=== PATIENT | female | born 1995 | race Two or more races ===

== ENCOUNTER 2022-05-28 15:58 | Outpatient (CLI) | payer OTHER | END 2022-05-28 17:12 | disposition home or self-care (01) | LOC: PRENATAL 15:58 | PROVIDERS: ATTEND Obstetrics & Gynecology Maternal & Fetal Medicine | DX: O35.0XX0 Maternal care for (suspected) central nervous system malformation in fetus, not applicable or unspecified (principal); O35.3XX0 Maternal care for (suspected) damage to fetus from viral disease in mother, not applicable or unspecified; O13.9 Gestational [pregnancy-induced] hypertension without significant proteinuria, unspecified trimester; Z3A.21 21 weeks gestation of pregnancy ==

== ENCOUNTER 2022-07-16 15:15 | Outpatient (CLI) | payer OTHER ==
[~2022-07-16 15:15] MED LIST: ADALAT CC60 MG PO
[2022-07-17] MEDS ORDERED: ADALAT CC60 MG PO (16:58)
[2022-07-31] MEDS ORDERED: LEVOTHYROXINE25 MCG PO (08:45)
== END 2022-07-16 16:52 | disposition home or self-care (01) ==
LOC: PRENATAL 15:15
PROVIDERS: ATTEND Obstetrics & Gynecology Maternal & Fetal Medicine
DX: O26.849 Uterine size-date discrepancy, unspecified trimester (principal); O13.9 Gestational [pregnancy-induced] hypertension without significant proteinuria, unspecified trimester; Z3A.28 28 weeks gestation of pregnancy

== ENCOUNTER 2022-08-20 15:21 | Outpatient (CLI) | payer OTHER ==
[~2022-08-20 15:21] MED LIST changes: +LEVOTHYROXINE25 MCG PO
[2022-08-23] MEDS ORDERED: PROCARDIA XL90 MG PO ×2 (09:44→09:45)
== END 2022-08-20 16:23 | disposition home or self-care (01) ==
LOC: PRENATAL 15:21
PROVIDERS: ATTEND Obstetrics & Gynecology Maternal & Fetal Medicine
DX: O26.849 Uterine size-date discrepancy, unspecified trimester (principal); O13.9 Gestational [pregnancy-induced] hypertension without significant proteinuria, unspecified trimester; Z3A.33 33 weeks gestation of pregnancy

== ENCOUNTER 2024-01-12 09:08 | Emergency (ER) | payer OTHER ==
[~2024-01-12] VITALS: Ht 160 cm; Wt 85.7 kg
[~2024-01-12 09:08] MED LIST changes: +PROCARDIA XL90 MG PO
[2024-01-12] MEDS ORDERED: KETOROLAC TROMETHAMINE 60 MG VIAL IM STA (09:40)
[2024-01-12 10:04] LABS: HEMATOCRIT 35.6 % (36.0-45.00); MEAN CELL VOLUME 81.8 fL (80.00-100.00); MEAN CORPUSCULAR HEMOGLOBIN 27.5 pg (27.00-32.0); MEAN CORPUSCULAR HGB CONC 33.7 g/dl (32.0-36.0); PLATELET COUNT 428 K/uL (150-450); RED BLOOD COUNT 4.35 M/uL (4.00-6.00); RED CELL DISTRIBUTION WIDTH 13.8 % (11.5-14.5)
[2024-01-12 10:39] LABS: PH,URINE 7.5 (5.0-8.0); URINE APPEARANCE Clear; URINE BILIRRUBIN Negative (NEGATIVE); URINE BLOOD Moderate; URINE COLOR Yellow; URINE GLUCOSE Negative (NEGATIVE); URINE LEUKOCYTE Negative; URINE NITRATE Negative; URINE PROTEIN Negative (NEGATIVE); URINE UROBILINOGEN 0.2 E.U./dl
[2024-01-12 10:43] LABS: URINE BACTERIA 34.1 uL (0.0-1933); URINE EPITHELIAL CELLS 46.1 uL (0.0-38.8); URINE RBC 17.9 uL (0.0-20.8)
[2024-01-12 11:41] LABS: CALCIUM 10.1 mg/dL (8.5-10.1); CREATININE SERUM 0.51 mg/dL (0.55-1.02); GFR 145.77; POTASSIUM 4.1 mEq/L (3.5-5.1)
== END 2024-01-12 14:00 | disposition home or self-care (01) ==
LOC: ER 09:09
PROVIDERS: General Practice
DX: R10.2 Pelvic and perineal pain (principal); N83.291 Other ovarian cyst, right side

== ENCOUNTER 2024-05-25 21:43 | Emergency (ER) | payer OTHER ==
[~2024-05-25] VITALS: Ht 160 cm; Wt 87.1 kg
[2024-05-25] MEDS ORDERED: CEFTRIAXONE SODIUM 1,000 MG VIAL IM STA (22:23)
[2024-05-25] MEDS ORDERED: ACETAMINOPHEN 325 MG TABLET PO STA (22:23)
[2024-05-25] MEDS ORDERED: NEOMYCIN/POLYMYXIN B/HYDROCORT 20 DR/ML BOTTLE OT STA (22:24)
== END 2024-05-25 22:43 | disposition home or self-care (01) ==
LOC: ER 21:44
DX: O26.899 Other specified pregnancy related conditions, unspecified trimester (principal); K05.10 Chronic gingivitis, plaque induced; H60.90 Unspecified otitis externa, unspecified ear

== ENCOUNTER 2024-06-07 02:51 | Emergency (ER) | payer OTHER ==
[~2024-06-07] VITALS: Ht 160 cm; Wt 83.9 kg
[2024-06-07] MEDS ORDERED: CEFTRIAXONE SODIUM 2,000 MG VIAL IV ONE (03:30)
[2024-06-07] MEDS ORDERED: OxyCODONE HCL/APAP UD (PERCOCET) PO ONE (03:30)
[2024-06-07] MEDS ORDERED: DEXAMETHASONE SODIUM PHOSPHATE 4 MG/ML VIAL IM ONE (03:30)
[2024-06-07] MEDS ORDERED: CEFTRIAXONE SODIUM 2,000 MG VIAL ONE (03:36)
[2024-06-07] MEDS ORDERED: DEXAMETHASONE SODIUM PHOSPHATE 4 MG/ML VIAL ONE (03:36)
[2024-06-07] MEDS ORDERED: DUI500 PO (04:55)
[2024-06-07] MEDS ORDERED: DOLOGEN CAPLET1 EACH PO (04:55)
== END 2024-06-07 04:59 | disposition home or self-care (01) ==
LOC: ER 02:52
DX: O26.891 Other specified pregnancy related conditions, first trimester (principal); K08.89 Other specified disorders of teeth and supporting structures; Z3A.10 10 weeks gestation of pregnancy

== ENCOUNTER 2024-06-24 10:17 | Outpatient (CLI) | payer OTHER ==
[~2024-06-24 10:17] MED LIST changes: +DOLOGEN CAPLET1 EACH PO; +DUI500 PO
== END 2024-06-24 10:18 | disposition home or self-care (01) ==
LOC: PRENATAL 10:17
PROVIDERS: ATTEND Obstetrics & Gynecology Maternal & Fetal Medicine
DX: Z76.1 Encounter for health supervision and care of foundling (principal)

== ENCOUNTER 2024-07-03 13:43 | Outpatient (CLI) | payer OTHER | END 2024-07-03 13:44 | disposition home or self-care (01) | LOC: PRENATAL 13:43 | PROVIDERS: ATTEND Obstetrics & Gynecology Maternal & Fetal Medicine | DX: O36.80X0 Pregnancy with inconclusive fetal viability, not applicable or unspecified (principal); Z36.82 Encounter for antenatal screening for nuchal translucency; O16.2 Unspecified maternal hypertension, second trimester; O14.92 Unspecified pre-eclampsia, second trimester; O34.219 Maternal care for unspecified type scar from previous cesarean delivery; O34.12 Maternal care for benign tumor of corpus uteri, second trimester; Z3A.14 14 weeks gestation of pregnancy ==

== ENCOUNTER 2024-08-05 15:14 | Outpatient (CLI) | payer OTHER | END 2024-08-05 15:15 | disposition home or self-care (01) | LOC: PRENATAL 15:14 | PROVIDERS: ATTEND Obstetrics & Gynecology Maternal & Fetal Medicine | DX: O35.3XX0 Maternal care for (suspected) damage to fetus from viral disease in mother, not applicable or unspecified (principal); O44.00 Complete placenta previa NOS or without hemorrhage, unspecified trimester; O10.019 Pre-existing essential hypertension complicating pregnancy, unspecified trimester; O14.90 Unspecified pre-eclampsia, unspecified trimester; O34.219 Maternal care for unspecified type scar from previous cesarean delivery; O34.10 Maternal care for benign tumor of corpus uteri, unspecified trimester; Z3A.19 19 weeks gestation of pregnancy ==

== ENCOUNTER 2024-09-07 14:08 | Outpatient (CLI) | payer OTHER | END 2024-09-07 14:09 | disposition home or self-care (01) | LOC: PRENATAL 14:08 | PROVIDERS: ATTEND Obstetrics & Gynecology Maternal & Fetal Medicine | DX: O26.849 Uterine size-date discrepancy, unspecified trimester (principal); O10.019 Pre-existing essential hypertension complicating pregnancy, unspecified trimester; O14.90 Unspecified pre-eclampsia, unspecified trimester; O34.219 Maternal care for unspecified type scar from previous cesarean delivery; O34.10 Maternal care for benign tumor of corpus uteri, unspecified trimester; Z3A.24 24 weeks gestation of pregnancy ==

== ENCOUNTER 2024-10-05 15:19 | Outpatient (CLI) | payer OTHER | END 2024-10-05 15:20 | disposition home or self-care (01) | LOC: PRENATAL 15:19 | PROVIDERS: ATTEND Obstetrics & Gynecology Maternal & Fetal Medicine | DX: O26.849 Uterine size-date discrepancy, unspecified trimester (principal); O36.8199 Decreased fetal movements, unspecified trimester, other fetus; O10.019 Pre-existing essential hypertension complicating pregnancy, unspecified trimester; O14.90 Unspecified pre-eclampsia, unspecified trimester; O34.219 Maternal care for unspecified type scar from previous cesarean delivery; O34.10 Maternal care for benign tumor of corpus uteri, unspecified trimester; Z3A.27 27 weeks gestation of pregnancy ==

== ENCOUNTER → 2024-11-16 08:54 | Outpatient (CLI) | payer OTHER | END | disposition home or self-care (01) | LOC: PRENATAL 08:54 | PROVIDERS: ATTEND Obstetrics & Gynecology Maternal & Fetal Medicine | DX: O26.849 Uterine size-date discrepancy, unspecified trimester (principal); O36.8199 Decreased fetal movements, unspecified trimester, other fetus; O10.019 Pre-existing essential hypertension complicating pregnancy, unspecified trimester; O14.90 Unspecified pre-eclampsia, unspecified trimester; O34.219 Maternal care for unspecified type scar from previous cesarean delivery; O34.10 Maternal care for benign tumor of corpus uteri, unspecified trimester; Z3A.34 34 weeks gestation of pregnancy ==

== ENCOUNTER 2024-12-11 10:27 | Inpatient (IN) | payer OTHER ==
[~2024-12-11] VITALS: Ht 160 cm; Wt 93.4 kg
[2024-12-11 11:27] LABS: HEMATOCRIT 33.7 % (36.0-45.00); HEMOGLOBIN 11.3 g/dL (12.0-15.00); MEAN CELL VOLUME 85.8 fL (80.00-100.00); MEAN CORPUSCULAR HEMOGLOBIN 28.7 pg (27.00-32.0); MEAN CORPUSCULAR HGB CONC 33.4 g/dl (32.0-36.0); PLATELET COUNT 298 K/uL (150-450); RED BLOOD COUNT 3.93 M/uL (4.00-6.00); RED CELL DISTRIBUTION WIDTH 14.2 % (11.5-14.5)
[2024-12-11 11:33] LABS: URINE APPEARANCE Clear; URINE BILIRRUBIN Negative (NEGATIVE); URINE BLOOD Negative; URINE COLOR Yellow; URINE GLUCOSE Negative (NEGATIVE); URINE KETONE Negative (NEGATIVE); URINE LEUKOCYTE Small; URINE NITRATE Negative; URINE PROTEIN 30 (NEGATIVE); URINE UROBILINOGEN 0.2 E.U./dl
[2024-12-11 11:38] LABS: URINE BACTERIA 851.8 uL (0.0-1933); URINE EPITHELIAL CELLS 59.5 uL (0.0-38.8); URINE RBC 10.4 uL (0.0-20.8); URINE WBC 66.7 uL (0.0-23.2)
[2024-12-11] MEDS ORDERED: LABETALOL HCL200 MG PO (11:39)
[2024-12-11 11:51] LABS: INR 0.94; PARTIAL THROMBOPLASTIN TIME 26.9 SECONDS (22.0-34.0); PROTHROMBIN TIME 10.3 SECONDS (9.0-11.5)
[2024-12-11 11:52] LABS: URINE CAST 0.44 uL (0.0-1.40)
[2024-12-11 12:32] LABS: ALBUMIN 2.8 gm/dL (3.4-5.0); BILIRUBIN TOTAL 0.25 mg/dL (0.3-1.2); CALCIUM 9.6 mg/dL (8.5-10.1); CREATININE SERUM 0.52 mg/dL (0.55-1.02); GFR 141.45; GLOBULINA 3.9 G/DL (2.4-3.5); POTASSIUM 4.68 mEq/L (3.5-5.1); TOTAL PROTEIN 6.7 gm/dL (6.4-8.2)
[2024-12-15] MEDS ORDERED: PRENATAL + DHA1 EAC1 PO (06:36)
[2024-12-15] MEDS ORDERED: PEPCID AC20 MG PO (06:37)
[2024-12-15 06:38] VITALS: BP 135/87
[2024-12-15] MEDS ORDERED: CEFAZOLIN SODIUM 1,000 MG VIAL ONE (16:51)
[2024-12-15] MEDS ORDERED: ERYTHROMYCIN BASE OPHT 1GM EACH TUBE OP ONE (18:11)
[2024-12-15] MEDS ORDERED: OXYTOCIN 10 UNITS/ML VIAL ONE (18:11)
[2024-12-15] MEDS ORDERED: MEPERIDINE HCL/PF 50 MG/ML VIAL IM PRN (20:00)
[2024-12-15] MEDS ORDERED: PROMETHAZINE HCL 50 MG/ML AMPUL IM PRN (20:00)
[2024-12-15] MEDS ORDERED: PROMETHAZINE HCL 50 MG/ML AMPUL IM ONE (21:54)
[2024-12-15] MEDS ORDERED: LABETALOL HCL 100 MG/20 ML ML ONE (22:15)
[2024-12-15] MEDS ORDERED: LABETALOL HCL 100 MG/20 ML ML IV PUSH ONE (22:30)
[2024-12-16] VITALS: BP 139/80
[2024-12-16 07:17] LABS: HEMATOCRIT 28.9 % (36.0-45.00); HEMOGLOBIN 9.8 g/dL (12.0-15.00); MEAN CELL VOLUME 85.1 fL (80.00-100.00); MEAN CORPUSCULAR HGB CONC 34.1 g/dl (32.0-36.0); PLATELET COUNT 253 K/uL (150-450); RED CELL DISTRIBUTION WIDTH 14.2 % (11.5-14.5)
[2024-12-16] MEDS ORDERED: OxyCODONE HCL/APAP UD (PERCOCET) PO PRN (08:00)
[2024-12-16 09:00] VITALS: BP 120/80
[2024-12-16] MEDS ORDERED: SIMETHICONE 125 MG CAPSULE PO SCH (09:00)
[2024-12-16] MEDS ORDERED: PNV,CALCIUM 72/IRON/FOLIC ACID 1 TAB TABLET PO SCH (09:00)
[2024-12-16] MEDS ORDERED: DOCUSATE SODIUM 100MG CAP PO SCH (09:00)
[2024-12-16] MEDS ORDERED: LABETALOL HCL 200 MG TABLET PO SCH (09:16)
[2024-12-16 16:15] VITALS: BP 121/82
[2024-12-17] VITALS: BP 117/78
[2024-12-17 08:26] VITALS: BP 125/88
[2024-12-17 16:13] VITALS: BP 130/85
== END 2024-12-17 16:16 | disposition home or self-care (01) | DRG 785 ==
LOC: LDR 12-14 07:00 → O/R 12-15 15:03 → OB/GYN 12-15 20:48
PROVIDERS: ADMIT Obstetrics & Gynecology; ATTEND Obstetrics & Gynecology
PROC: 0UB70ZZ Excision of Bilateral Fallopian Tubes, Open Approach (ICD-10-PCS; 2024-12-15)
PROC: 4A1HXCZ Monitoring of Products of Conception, Cardiac Rate, External Approach (ICD-10-PCS; 2024-12-15)
PROC: 10D00Z1 Extraction of Products of Conception, Low, Open Approach (ICD-10-PCS; principal; 2024-12-15 07:00)
DX: O10.02 Pre-existing essential hypertension complicating childbirth (principal); O34.211 Maternal care for low transverse scar from previous cesarean delivery; Z3A.38 38 weeks gestation of pregnancy; Z37.0 Single live birth; Z30.2 Encounter for sterilization